=== PATIENT | female | born 1940 | race American Indian/Alaskan Native ===

== ENCOUNTER 2016-12-08 18:33 | Emergency (ER) | payer MEDICARE ==
--- NOTE | 2016-12-08 20:51 | XRay Report ---
FINAL REPORT PROCEDURE: XR FOOT 2V RT TECHNIQUE: RIGHT foot radiographs, AP and lateral views. HISTORY: foot injury RIGHT COMPARISON: No prior studies are available for comparison. FINDINGS: Fracture (s) and/or Dislocation(s): None . Alignment: Normal. Joint space(s): Normal. Soft tissues: Normal. Bone mineralization: Normal. Foreign bodies: None. Calcaneal spurring: Plantar spur. Enthesophyte at the insertion of the calcaneus IMPRESSION: No fracture. Heel spurs
--- NOTE | 2016-12-08 21:29 | Emergency Department Report ---
ED Lower Extremity HPI - General Chief Complaint: Extremity Injury, Lower Stated Complaint: RIGHT FOOT PAIN Time Seen by Provider: 12/08/16 21:08 Source: patient Mode of arrival: Wheelchair Limitations: No Limitations - History of Present Illness Initial Comments: 76-year-old female past medical history hypertension, CK D stage III, hyperlipidemia presents with complaint of 4 days of worsening right great toe pain. Patient states that she may have bumped her toe into a piece of furniture at home 4 days ago but is unsure. Patient is visibly pointing towards her right great toe and the area at the base of her toe which is visibly slightly swollen and erythematous. Patient denies fevers or chills. Denies nausea or vomiting. Denies sustaining any abrasions and/or lacerations to site. Patient is ambulatory but states that walking on her right foot is uncomfortable. Patient is accompanied by her son at bedside. Patient is awake alert and oriented 3 does not appear to be in acute distress. Fully lucid and conversant. MD Complaint: foot injury -: days(s) Injury: Foot: Right Place: home Severity: moderate Severity scale (0 -10): 5 Associated Symptoms: snap/pop sensation, swelling, able to partially bear weight - Related Data Home Medications Medication Instructions Recorded Confirmed Last Taken Albuterol Sulfate [Ventolin HFA] 2 puff IH Q4H PRN 12/20/13 12/20/13 12/19/13 Fluticasone [Flonase] 1 spray NS QDAY 12/20/13 12/20/13 12/19/13 Fluvastatin (Nf) [Lescol (Nf)] 20 mg PO QPM 12/20/13 12/20/13 12/19/13 Montelukast [Singulair] 10 mg PO QPM 12/20/13 12/20/13 12/19/13 PARoxetine [Paxil] 20 mg PO DAILY 12/20/13 12/20/13 12/19/13 Pantoprazole [Protonix] 20 mg QDAY 12/20/13 12/20/13 12/19/13 busPIRone [Buspar] 5 mg PO TID 12/20/13 12/20/13 12/19/13 Previous Rx's Medication Instructions Recorded Last Taken Type Metoprolol Xl [Metoprolol 50 mg PO QDAY #30 tablet 12/20/13 Unknown Rx SUCCINATE ER TAB] Benzonatate [Tessalon Perles] 100 mg PO Q8HR PRN #30 capsule 03/20/14 Unknown Rx Sodium Chloride [Saline Nasal 2 sprays NS PRN PRN #1 bottle 03/20/14 Unknown Rx [place]] Lisinopril/Hydrochlorothiazide 1 tab PO QDAY #30 tablet 07/06/14 Unknown Rx [Zestoretic 20-12.5 mg] Diclofenac Dr [Delmy [place]] 75 mg PO Q12H #30 tablet 07/15/15 Unknown Rx traMADol [Ultram 50 MG tab] 50 mg PO Q6HR PRN #20 tablet 07/15/15 Unknown Rx HYDROcodone/APAP 5-325 [[place] 1 each PO Q6HR PRN #12 tablet 12/08/16 Unknown Rx 5/325] predniSONE [Deltasone] 40 mg PO QDAY #8 tab 12/08/16 Unknown Rx Allergies Allergy/AdvReac Type Severity Reaction Status Date / Time ciprofloxacin [From Cipro] Allergy Hives Verified 10/08/14 13:02 ciprofloxacin HCl Allergy Hives Verified 10/08/14 13:02 [From Cipro] pravastatin Allergy Hives Verified 10/08/14 13:02 iv dye Allergy Hives Uncoded 10/08/14 13:02 ED Review of Systems ROS: Stated complaint: RIGHT FOOT PAIN Other details as noted in HPI Constitutional: denies: chills, fever Eyes: denies: eye pain, eye discharge, vision change ENT: denies: ear pain, throat pain Respiratory: denies: cough, shortness of breath, wheezing Cardiovascular: denies: chest pain, palpitations Endocrine: no symptoms reported Gastrointestinal: denies: abdominal pain, nausea, diarrhea Genitourinary: denies: urgency, dysuria, discharge Musculoskeletal: as per HPI, arthralgia. 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 SPINE/BACK PROBLEM - Surgical History Hx Cholecystectomy: Yes Additional Surgical History: hysterectomy - Social History Smoking Status: Never Smoker Substance Use Type: None - Medications Home Medications: Home Medications Medication Instructions Recorded Confirmed Last Taken Type Albuterol Sulfate [Ventolin HFA] 2 puff IH Q4H PRN 12/20/13 12/20/13 12/19/13 History Fluticasone [Flonase] 1 spray NS QDAY 12/20/13 12/20/13 12/19/13 History Fluvastatin (Nf) [Lescol (Nf)] 20 mg PO QPM 12/20/13 12/20/13 12/19/13 History Metoprolol Xl [Metoprolol 50 mg PO QDAY #30 tablet 12/20/13 Unknown Rx SUCCINATE ER TAB] Montelukast [Singulair] 10 mg PO QPM 12/20/13 12/20/13 12/19/13 History PARoxetine [Paxil] 20 mg PO DAILY 12/20/13 12/20/13 12/19/13 History Pantoprazole [Protonix] 20 mg QDAY 12/20/13 12/20/13 12/19/13 History busPIRone [Buspar] 5 mg PO TID 12/20/13 12/20/13 12/19/13 History Benzonatate [Tessalon Perles] 100 mg PO Q8HR PRN #30 capsule 03/20/14 Unknown Rx Sodium Chloride [Saline Nasal 2 sprays NS PRN PRN #1 bottle 03/20/14 Unknown Rx [place]] Lisinopril/Hydrochlorothiazide 1 tab PO QDAY #30 tablet 07/06/14 Unknown Rx [Zestoretic 20-12.5 mg] Diclofenac Dr [Del[place]] 75 mg PO Q12H #30 tablet 07/15/15 Unknown Rx traMADol [Ultram 50 MG tab] 50 mg PO Q6HR PRN #20 tablet 07/15/15 Unknown Rx HYDROcodone/APAP 5-325 [[place] 1 each PO Q6HR PRN #12 tablet 12/08/16 Unknown Rx 5/325] predniSONE [Deltasone] 40 mg PO QDAY #8 tab 12/08/16 Unknown Rx ED Physical Exam - General Limitations: No Limitations General appearance: alert, in no apparent distress - Head Head exam: Present: atraumatic, normocephalic - Eye Eye exam: Present: normal appearance, PERRL, EOMI - ENT ENT exam: Present: mucous membranes moist - Neck Neck exam: Present: normal inspection - Respiratory Respiratory exam: Present: normal lung sounds bilaterally. Absent: respiratory distress - Cardiovascular Cardiovascular Exam: Present: regular rate, normal rhythm. Absent: systolic murmur, diastolic murmur, rubs, gallop - GI/Abdominal GI/Abdominal exam: Present: soft, normal bowel sounds - Extremities Exam Extremities exam: Present: normal inspection - Expanded Lower Extremity Exam Right Hip exam: Present: normal inspection, full ROM Upper Leg exam: Present: normal inspection, full ROM Knee exam: Present: normal inspection, full ROM Lower Leg exam: Present: normal inspection, full ROM Ankle exam: Present: normal inspection, full ROM Foot/Toe exam: Present: normal inspection, full ROM, tenderness (some tenderness right great toe region) Neuro vascular tendon exam: Present: no vascular compromise (distal pulses intact on exam) 1 - some tenderss, swelling and erythema here - Back Exam Back exam: Present: normal inspection, tenderness - Neurological Exam Neurological exam: Present: alert, oriented X3, CN II-XII intact, normal gait - Psychiatric Psychiatric exam: Present: normal affect, normal mood - Skin Skin exam: Present: warm, dry, intact, normal color. Absent: rash ED Course Vital Signs 12/08/16 12/08/16 19:20 21:53 Temperature 98.1 F Pulse Rate 85 Respiratory 15 18 Rate Blood Pressure 189/64 Blood Pressure 189/64 [Left] O2 Sat by Pulse 99 Oximetry ED Lower Extremity MDM - Lab Data Result diagrams: 12/08/16 21:49 12/08/16 21:49 - Medical Decision Making A/P: Gout flare right great toe 1- short course prednisone 2- short course norco 3- selection of analgesics based on [place] recommendations https:// [email or web address]-ad-nhaiz-gout?[email or web address]=search_result&search= gout&[email or web address]~150#PATIENT_INFORMATION Critical care attestation.: If time is entered above; I have spent that time in minutes in the direct care of this critically ill patient, excluding procedure time. ED Disposition Clinical Impression: Toe pain, right Gout Qualifiers: Gout site: toe Gout etiology: unspecified cause Chronicity: acute Laterality: right Qualified Code(s): M10.9 - Gout, unspecified Disposition: TO HOME OR SELFCARE Is pt being admited?: No Does the pt Need Aspirin: No Condition: Stable Instructions: Acute Gouty Arthritis (ED), RICE Therapy (ED) Prescriptions: HYDROcodone/APAP 5-325 [[place] 5/325] 1 each PO Q6HR PRN #12 tablet PRN Reason: Pain predniSONE [Deltasone] 40 mg PO QDAY #8 tab Referrals: TITA BO MD [Primary Care Provider] - 3-5 Days FADI ESCOBEDO MD [Staff Physician] - 3-5 Days Forms: Work/School Release Form(ED), Accompanied Note Time of Disposition: 22:37
[2016-12-08] MEDS: DELTASONE PO ONE (21:52)
[2016-12-08] MEDS: ZOFRAN ODT PO ONE (21:53)
[2016-12-08] MEDS: NORCO 5/325 PO ONE (21:53)
[2016-12-08 22:10] LABS: Basophils % (Auto) 0.8 % (0.0-1.8); Eosinophils % (Auto) 4.4 % (0.0-4.3); Hematocrit 36.9 % (30.3-42.9); Hemoglobin 12.1 gm/dl (10.1-14.3); Mean Corpuscular HGB Conc 33 % (30-34); Mean Corpuscular Hemoglobin 29 pg (28-32); Mean Corpuscular Volume 88 fl (79-97); Platelet Count 249 K/mm3 (140-440); Red Cell Distribution Width 14.5 % (13.2-15.2); White Blood Count 7.2 K/mm3 (4.5-11.0)
[2016-12-08 22:27] LABS: Calcium 10.4 mg/dL (8.4-10.2); Chloride 101.1 mmol/L (98-107); Potassium 4.7 mmol/L (3.6-5.0)
[2016-12-08 22:57] VITALS: BP 201/79
[2016-12-08] MEDS ORDERED: LOPRESSOR ONE (23:09)
[2016-12-08] MEDS: LOPRESSOR PO ONE (23:15)
== END 2016-12-08 23:16 | disposition home or self-care (01) ==
LOC: ED 18:33
DX: M79.674 Pain in right toe(s) (principal); M10.9 Gout, unspecified; M19.90 Unspecified osteoarthritis, unspecified site; J44.9 Chronic obstructive pulmonary disease, unspecified; I12.0 Hypertensive chronic kidney disease with stage 5 chronic kidney disease or end stage renal disease; N18.3 Chronic kidney disease, stage 3 (moderate); Z88.1 Allergy status to other antibiotic agents; Z88.8 Allergy status to other drugs, medicaments and biological substances; W22.03XA Walked into furniture, initial encounter; Y93.89 Activity, other specified; Y92.89 Other specified places as the place of occurrence of the external cause; Y99.8 Other external cause status
CPT/HCPCS: 36415; 73620; 80048; 85025; 99284; J7512; Q0162